=== PATIENT | female | born 1980 | race Caucasian/White ===

== ENCOUNTER → 2017-05-01 | Outpatient (CLI) | payer OTHER ==
--- NOTE | 2017-05-03 08:16 | MR ---
EXAMINATION TYPE: MR knee RT wo con DATE OF EXAM: 05/01/2017 COMPARISON: NONE HISTORY: right knee pain TECHNIQUE: Multiplanar, multisequence imaging of the right knee is performed without IV contrast. FINDINGS: MEDIAL MENISCUS: Within the peripheral aspect posterior horn medial meniscus findings are suspicious for a subtle tear.. LATERAL MENISCUS: Anterior and posterior horns are intact without tear. CRUCIATE LIGAMENTS: The anterior and posterior cruciate ligaments are intact and unremarkable. COLLATERAL LIGAMENTS: The medial collateral ligament and lateral collateral ligament complex are inta ct and unremarkable. EXTENSOR MECHANISM: Visualized quadriceps and patellar tendons are intact. There is increased edema w ithin the suprapatellar fat. EFFUSION: No significant suprapatellar joint effusion. POPLITEAL CYST: No popliteal/santo cyst. TRICOMPARTMENT SPACES: Joint spaces preserved.. Cartilage maintained. BONE MARROW SIGNAL: No focal abnormal marrow signal is appreciated. IMPRESSION: 1. No evidence of a ligamentous tear. 2. Within the posterior horn medial meniscus there is peripheral linear area of abnormal signal suspi cious for subtle tear. 3. Correlate for suprapatellar fat pad impingement.
== END ==
LOC: RADMRIMAIN 09:30
PROVIDERS: ATTEND Orthopaedic Surgery
DX: M25.561 Pain in right knee (principal); R93.7 Abnormal findings on diagnostic imaging of other parts of musculoskeletal system

== ENCOUNTER → 2019-01-07 | Outpatient (CLI) | payer OTHER ==
--- NOTE | 2019-01-08 17:07 | MR ---
EXAMINATION TYPE: MR lumbar spine wo con DATE OF EXAM: 01/07/2019 COMPARISON: NONE HISTORY: LBP, spondylosis with radiculopathy per order. Back pain into left leg for 1 month per patie nt. TECHNIQUE: Multiplanar, multisequence imaging of the lumbar spine is performed without IV contrast. FINDINGS: Sagittal images of the lumbar spine show vertebral body heights and alignment to appear sat isfactory. There is disc desiccation with mild disc space narrowing T12-L1 level. There is disc desic cation with mild to moderate disc space narrowing L5-S1 level with Modic type II endplate changes ant eriorly. The conus medullaris is normal in position and signal ending mid L1 level. Axial images show at T12-L1, L1-L2, L2-L3, and L3-L4 levels all to appear within normal limits. Axial images at the L4-L5 level shows mild facet degenerative changes bilaterally. Axial images at the L5-S1 level show left paracentral broad-based disc protrusion measuring approxima tely 15 mm transversely by 4 to 5 mm AP diameter axial image 6, this appears to encroach on the left anterolateral recess and the central left S1 nerve. Bilateral neural foramina are patent. No suspicious incidental retroperitoneal finding is identified. IMPRESSION: Disc herniation L5-S1 level encroaches on the central left S1 nerve likely accounting for patient's left-sided radiculopathy type symptoms.
== END | disposition home or self-care (01) ==
LOC: RADMRIMAIN 10:01
PROVIDERS: ATTEND Orthopaedic Surgery
DX: M51.17 Intervertebral disc disorders with radiculopathy, lumbosacral region (principal); M25.572 Pain in left ankle and joints of left foot
CPT/HCPCS: 72148

== ENCOUNTER → 2019-07-11 | Outpatient (CLI) | payer OTHER ==
--- NOTE | 2019-07-12 13:11 | MM ---
Reason for exam: screening (asymptomatic). Baseline mammogram. Physical Findings: Nurse did not find any significant physical abnormalities on exam. MG Screening Mammo w CAD Bilateral CC and MLO view(s) were taken. The breast tissue is heterogeneously dense. This may lower the sensitivity of mammography. There is a 1.1cm left superior breast posterior depth asymmetry, XCCL view to be performed. Bilateral upper outer quadrant posterior depth focal asymmetries. These results were verbally communicated with the patient and result sheet given to the patient on 07/11/19. ASSESSMENT: Incomplete: need additional imaging evaluation, BI-RAD 0 RECOMMENDATION: Special view mammogram of both breasts.
--- NOTE | 2019-07-12 13:14 | MM ---
Reason for exam: additional evaluation requested from abnormal screening. Physical Findings: Breast exam preformed at baseline screening. MG Work Up Mamm w CAD BILAT Bilateral spot compression CC, spot compression MLO, and ML view(s) were taken. The breast tissue is heterogeneously dense. This may lower the sensitivity of mammography. Right lateral asymmetry now has no clear correlate on ML or MLO. Right lateral ultrasound will be performed. Left upper outer quadrant focal asymmetry improves but visible, precautionary ultrasound will be performed. These results were verbally communicated with the patient and result sheet given to the patient on 07/11/19. ASSESSMENT: Incomplete: need additional imaging evaluation, BI-RAD 0 RECOMMENDATION: Ultrasound of both breasts. right lateral left upper outer quadrant
--- NOTE | 2019-07-12 13:15 | USB ---
Reason for exam: additional evaluation requested from abnormal screening. US Breast Workup Limited REZA Right limited breast ultrasound including focal area of concern, retroareolar and axilla demonstrates no cystic or solid lesion seen. Left limited breast ultrasound including focal area of concern, retroareolar and axilla demonstrates a 0.5 x 0.4 x 0.5cm oval, cystic lesion at 1 o'clock. These results were verbally communicated with the patient and result sheet given to the patient on 07/11/19. ASSESSMENT: Probably benign, BI-RAD 3 RECOMMENDATION: Follow-up diagnostic mammogram of both breasts in 6 months.
== END | disposition home or self-care (01) ==
LOC: RADMAMWWP 14:13
PROVIDERS: ATTEND Family Medicine
DX: Z12.31 Encounter for screening mammogram for malignant neoplasm of breast (principal); R92.8 Other abnormal and inconclusive findings on diagnostic imaging of breast
CPT/HCPCS: 77066; 77067

== ENCOUNTER → 2020-02-17 | Outpatient (CLI) | payer OTHER ==
--- NOTE | 2020-02-17 09:03 | MR ---
EXAMINATION TYPE: MR knee RT wo con DATE OF EXAM: 02/17/2020 8:15 AM COMPARISON: Previous study dated 05/01/2017. HISTORY: Medial Meniscus Tear TECHNIQUE: Multiplanar, multiecho imaging of the knee is performed without IV contrast. FINDINGS: There is only a small amount of joint fluid. There is no significant chondromalacia present. There is minimal myxoid change in the posterior horn of the medial meniscus. No communicating tear is identified. Both the anterior and posterior cruciate ligaments are intact. The medial and lateral collateral ligaments are intact. The iliotibial band insertion normally upon G erdy's tubercle. The popliteus muscle and tendon are normal. There is no significant swelling in the Hoffa fat space. Both patellar and quadriceps tendons are int act. No acute osseous lesion is seen. IMPRESSION: SMALL AMOUNT OF JOINT FLUID WITHOUT A DEFINITE LIGAMENTOUS OR MENISCAL TEAR.
== END | disposition home or self-care (01) ==
LOC: RADMRIMAIN 07:40
PROVIDERS: ATTEND Orthopaedic Surgery
DX: M25.461 Effusion, right knee (principal)

== ENCOUNTER → 2020-08-27 | Outpatient (CLI) | payer OTHER ==
--- NOTE | 2020-08-27 10:49 | MM ---
Reason for exam: additional evaluation requested from prior study. Last mammogram was performed 6 months ago. Physical Findings: Nurse did not find any significant physical abnormalities on exam. MG 3D Diag Mammo W/Cad REZA Bilateral CC and MLO view(s) were taken. Prior study comparison: February 23, 2020, bilateral MG 3d diag mammo w/cad REZA. July 11, 2019, bilateral MG work up mamm w CAD BILAT. The breast tissue is heterogeneously dense. This may lower the sensitivity of mammography. Persistent nodularity upper outer quadrant left breast. Ultrasound recommended. These results were verbally communicated with the patient and result sheet given to the patient on 08/27/20. ASSESSMENT: Incomplete: need additional imaging evaluation, BI-RAD 0 RECOMMENDATION: Ultrasound of the left breast.
--- NOTE | 2020-08-27 10:50 | USB ---
Reason for exam: additional evaluation requested from abnormal screening. US Breast Limited LT Left limited breast ultrasound including focal area of concern, retroareolar and axilla demonstrates a 5 x 4 x 5mm oval, cystic lesion at 2 o'clock and a 9 x 4 x 9mm lobular, cystic lesion with sepatation at 3 o'clock. These results were verbally communicated with the patient and result sheet given to the patient on 08/27/20. ASSESSMENT: Benign, BI-RAD 2 RECOMMENDATION: Routine screening mammogram of both breasts in 1 year.
== END | disposition home or self-care (01) ==
LOC: RADMAMWWP 09:25
PROVIDERS: ATTEND Family Medicine
DX: R92.8 Other abnormal and inconclusive findings on diagnostic imaging of breast (principal)
CPT/HCPCS: 77062; 77066

== ENCOUNTER → 2022-04-06 | Outpatient (CLI) | payer BC ==
--- NOTE | 2022-04-10 18:27 | MM ---
Reason for Exam: Screening (asymptomatic). Last mammogram was performed 1 year(s) and 7 month(s) ago. Patient History: Menarche at age 14. First Full-Term at age 19. Last menstrual period: 03/27/2022 Risk Values: Guillermina 5 year model risk: 0.6%. NCI Lifetime model risk: 8.0%. Prior Study Comparison: 07/11/2019 Bilateral Diagnostic Mammogram, [facility]. 02/23/2020 Bilateral Diagnostic Mammogram, [facility]. 08/27/2020 Bilateral Diagnostic Mammogram, [facility]. Tissue Density: The breast tissue is heterogeneously dense. This may lower the sensitivity of mammography. Findings: Analyzed By CAD. There is no suspicious group of microcalcifications or new suspicious mass in either breast. Overall Assessment: Negative, BI-RAD 1 Management: Screening Mammogram of both breasts in 1 year. A clinical breast exam by your physician is recommended on an annual basis and results should be correlated with mammographic findings. Electronically signed and approved by: Antonio Quezada DO
== END | disposition home or self-care (01) ==
LOC: RADMAMWWP 15:12
PROVIDERS: ATTEND Family Medicine
DX: Z12.31 Encounter for screening mammogram for malignant neoplasm of breast (principal)
CPT/HCPCS: 77063; 77067

== ENCOUNTER 2023-09-08 11:32 | Emergency (ER) | payer OTHER ==
--- NOTE | 2023-09-08 12:05 | ED ---
Female Urogenital HPI - General Chief complaint: Vaginal Bleeding Stated complaint: heavy bleeding Time Seen by Provider: 09/08/23 11:49 Source: patient, RN notes reviewed Mode of arrival: ambulatory Limitations: no limitations - History of Present Illness Initial comments: This is a 43 year old female who presents to the emergency department for vaginal bleeding. In May-June of last year she has having irregular vaginal bleeding, which she attributed to being perimenopausal. She went to her PCP and was started on oral contraceptives, specifically Sprintec, to try and regulate the bleeding. The OCPs were started in June. In July, she had heavy bleeding lasting for approximately 17 days with cramping. States that she just started bleeding again this morning. She has already gone through 10 tampons in an hour and states that the bleeding will not stop. She is not on any blood thinners. Denies any cramping at this time. She has no dizziness or lightheadedness, but states that she is just very anxious. Does not follow with [facility]. MD Complaint: vaginal bleeding - Related Data Allergies Allergy/AdvReac Type Severity Reaction Status Date / Time amoxicillin Allergy Swelling Verified 09/08/23 11:46 Penicillins Allergy Swelling Verified 09/08/23 11:46 Review of Systems ROS Statement: Those systems with pertinent positive or pertinent negative responses have been documented in the HPI. ROS Other: All systems not noted in ROS Statement are negative. Past Medical History Past Medical History: No Reported History History of Any Multi-Drug Resistant Organisms: None Reported Past Surgical History: Back Surgery, Tonsillectomy Past Psychological History: No Psychological Hx Reported Smoking Status: Never smoker Past Alcohol Use History: Occasional Past Drug Use History: None Reported General Exam Limitations: no limitations General appearance: alert, anxious Head exam: Present: atraumatic, normocephalic, normal inspection Respiratory exam: Present: normal lung sounds bilaterally. Absent: respiratory distress, wheezes, rales, rhonchi, stridor Cardiovascular Exam: Present: regular rate, normal rhythm, normal heart sounds. Absent: systolic murmur, diastolic murmur, rubs, gallop, clicks GI/Abdominal exam: Present: soft, normal bowel sounds. Absent: distended, tenderness, guarding, rebound, rigid Neurological exam: Present: alert, oriented X3, CN II-XII intact Psychiatric exam: Present: normal affect, normal mood Skin exam: Present: warm, dry, intact, normal color. Absent: rash Course Vital Signs 09/08/23 09/08/23 11:42 14:00 Temperature 97.6 F 98.9 F Pulse Rate 124 H 97 Respiratory 18 16 Rate Blood Pressure 189/115 166/87 O2 Sat by Pulse 98 97 Oximetry Medical Decision Making - Medical Decision Making This is a 43 year old female who presents to the emergency department for vaginal bleeding. Was pt. sent in by a medical professional or institution? @ -No Did you speak to anyone other than the patient for history? @ -No Did you review nursing and triage notes? @ -Yes, and I agree, it is accurate with regards to the patient's symptoms. Were old charts reviewed? @ -No Differential Diagnosis? @ -Differential Vaginal Bleeding: Spontaneous , threatened , molar , ectopic , i ncompetent cervix, placenta previa, uterine rupture, dysfunctional uterine bleeding, hemorrhage, uterine fibroids, malignancy, coagulopathy, PID, cervicitis, adenomyosis, vaginal trauma, this is not meant to be an all- inclusive list. EKG interpreted by me (3pts min.)? @ -Not obtained X-rays interpreted by me (1pt min.)? @ -Not obtained CT interpreted by me (1pt min.)? @ -Not obtained U/S interpreted by me (1pt. min.)? @ -Pelvic US obtained. My interpretation identifies a uterine fibroid. What testing was considered but not performed? (CT, X-rays, U/S, labs)? Why? @ -None What meds were considered but not given? Why? @ -None Did you discuss the management of the patient with other professionals? @ -No Did you reconcile home meds? @ -No Was smoking cessation discussed for >3mins.? @ -No Was critical care preformed (if so, how long)? @ -No Were there social determinants of health that impacted care today? How? (Homelessness, low income, unemployed, alcoholism, drug addiction, tr ansportation, low edu. Level, literacy, decrease access to med. care, fci, rehab)? @ -No Was there de-escalation of care discussed even if they declined? (Discuss DNR or withdrawal of care, Hospice)? @ -No What co-morbidities impacted this encounter? (DM, HTN, Smoking, COPD, CAD, Cancer, CVA, Hep., AIDS, mental health diagnosis, sleep apnea, morbid obesity)? @ -None Was patient admitted / discharged? @ -Discharged. Lab work obtained demonstrating a normal hemoglobin level of 13.2. She has mild leukocytosis. Lab work was otherwise unremarkable. Urinalysis negative for signs of infection. Pelvic US obtained demonstrating a probable large central fibroid with a submucosal component. No evidence of ovarian torsion or adnexal mass was identified. Her bleeding did improve to some extent while in the emergency department. Discussed that when starting OCP s, it can take a few months for bleeding to regulate, and this may be contributing to the bleeding. This may also be related to the uterine fibroid. We discussed NSAIDs such as ibuprofen can help with bleeding in cases of dysfunctional uterine bleeding. We did try to get her an appointment with OB /RN OR LPN, and they will review her records and contact the patient if they're able to get her an appointment. Patient otherwise discharged home in stable condition. Undiagnosed new problem with uncertain prognosis? @ -None Drug Therapy requiring intensive monitoring for toxicity (Heparin, Nitro, Insulin, Cardizem)? @ -None Were any procedures done? @ -None Diagnosis/symptom? @ -Dysfunctional uterine bleeding Acute, or Chronic, or Acute on Chronic? @ -Acute Uncomplicated (without systemic symptoms) or Complicated (systemic symptoms)? @ -Uncomplicated Side effects of treatment? @ -None Exacerbation, Progression, or Severe Exacerbation] @ -Not applicable Poses a threat to life or bodily function? @ -No Return precautions reviewed in depth, the patient is instructed to return to the emergency department with any new, worsening, or concerning symptoms. Patient verbalized understanding. This case was discussed in detail with the attending ED physician, Dr. Ward. Presentation, findings, and treatment plan discussed in detail as well. - Lab Data Result diagrams: 09/08/23 13:07 09/08/23 13:07 Lab Results 09/08/23 09/08/23 09/08/23 Range/Units 13:07 13:07 13:07 WBC 10.8 H (3.8-10.6) k/uL RBC 4.31 (3.80-5.40) m/uL Hgb 13.2 (11.4-16.0) gm/dL Hct 39.8 (34.0-46.0) % MCV 92.3 (80.0-100.0) fL MCH 30.5 (25.0-35.0) pg MCHC 33.1 (31.0-37.0) g/dL RDW 14.0 (11.5-15.5) % Plt Count 308 (150-450) k/uL MPV 7.9 Neutrophils % 81 % Lymphocytes % 14 % Monocytes % 3 % Eosinophils % 1 % Basophils % 1 % Neutrophils # 8.8 H (1.3-7.7) k/uL Lymphocytes # 1.5 (1.0-4.8) k/uL Monocytes # 0.4 (0-1.0) k/uL Eosinophils # 0.1 (0-0.7) k/uL Basophils # 0.1 (0-0.2) k/uL PT 9.8 L (10.0-12.5) sec INR 0.9 (<1.2) APTT 22.9 (22.0-30.0) sec Sodium (137-145) mmol/L Potassium (3.5-5.1) mmol/L Chloride (98-107) mmol/L Carbon Dioxide (22-30) mmol/L Anion Gap mmol/L BUN (7-17) mg/dL Creatinine (0.52-1.04) mg/dL Est GFR (CKD-EPI)AfAm (>60 ml/min/1.73 sqM) Est GFR (CKD-EPI)NonAf (>60 ml/min/1.73 sqM) Glucose (74-99) mg/dL Calcium (8.4-10.2) mg/dL Total Bilirubin (0.2-1.3) mg/dL AST (14-36) U/L ALT (4-34) U/L Alkaline Phosphatase (38-126) U/L Total Protein (6.3-8.2) g/dL Albumin (3.5-5.0) g/dL TSH (0.465-4.680) mIU/L HCG, Qual Urine Color Colorless Urine Appearance Clear (Clear) Urine pH 5.5 (5.0-8.0) Ur Specific [place] 1.015 (1.001-1.035) Urine Protein Trace H (Negative) Urine Glucose (UA) Negative (Negative) Urine Ketones Negative (Negative) Urine Blood Moderate H (Negative) Urine Nitrite Negative (Negative) Urine Bilirubin Negative (Negative) Urine Urobilinogen <2.0 (<2.0) mg/dL Ur Leukocyte Esterase Negative (Negative) Urine RBC 10 H (0-5) /hpf Urine WBC 3 (0-5) /hpf Ur Squamous Epith Cells <1 (0-4) /hpf Urine Bacteria Rare H (None) /hpf Urine Mucus Rare H (None) /hpf 09/08/23 Range/Units 13:07 WBC (3.8-10.6) k/uL RBC (3.80-5.40) m/uL Hgb (11.4-16.0) gm/dL Hct (34.0-46.0) % MCV (80.0-100.0) fL MCH (25.0-35.0) pg MCHC (31.0-37.0) g/dL RDW (11.5-15.5) % Plt Count (150-450) k/uL MPV Neutrophils % % Lymphocytes % % Monocytes % % Eosinophils % % Basophils % % Neutrophils # (1.3-7.7) k/uL Lymphocytes # (1.0-4.8) k/uL Monocytes # (0-1.0) k/uL Eosinophils # (0-0.7) k/uL Basophils # (0-0.2) k/uL PT (10.0-12.5) sec INR (<1.2) APTT (22.0-30.0) sec Sodium 139 (137-145) mmol/L Potassium 4.2 (3.5-5.1) mmol/L Chloride 109 H (98-107) mmol/L Carbon Dioxide 22 (22-30) mmol/L Anion Gap 8 mmol/L BUN 11 (7-17) mg/dL Creatinine 0.47 L (0.52-1.04) mg/dL Est GFR (CKD-EPI)AfAm >90 (>60 ml/min/1.73 sqM) Est GFR (CKD-EPI)NonAf >90 (>60 ml/min/1.73 sqM) Glucose 109 H (74-99) mg/dL Calcium 9.8 (8.4-10.2) mg/dL Total Bilirubin 0.3 (0.2-1.3) mg/dL AST 25 (14-36) U/L ALT 19 (4-34) U/L Alkaline Phosphatase 59 (38-126) U/L Total Protein 7.7 (6.3-8.2) g/dL Albumin 4.8 (3.5-5.0) g/dL TSH 2.690 (0.465-4.680) mIU/L HCG, Qual Not Detected Urine Color Urine Appearance (Clear) Urine pH (5.0-8.0) Ur Specific [place] (1.001-1.035) Urine Protein (Negative) Urine Glucose (UA) (Negative) Urine Ketones (Negative) Urine Blood (Negative) Urine Nitrite (Negative) Urine Bilirubin (Negative) Urine Urobilinogen (<2.0) mg/dL Ur Leukocyte Esterase (Negative) Urine RBC (0-5) /hpf Urine WBC (0-5) /hpf Ur Squamous Epith Cells (0-4) /hpf Urine Bacteria (None) /hpf Urine Mucus (None) /hpf - Radiology Data Radiology results: report reviewed, image reviewed Disposition Clinical Impression: Dysfunctional uterine bleeding Disposition: HOME SELF-CARE Instructions (If sedation given, give patient instructions): Abnormal (Dysfunctional) Uterine Bleeding (ED) Additional Instructions: Return to the emergency department with any new, worsening, or concerning symptoms. You can take ibuprofen 800 mg 3 times daily or Aleve to help with bleeding. The [facility] office will follow up with you to see if they can schedule you for a follow-up appointment. Follow up with your primary care provider in 1-2 days. Is patient prescribed a controlled substance at d/c from ED?: No Referrals: New Smith MD [Primary Care Provider] - 1-2 days Milagro Garrido DO [Doctor of Osteopathic Medicine] - 1-2 days (Office notified of referral and will contact you for appointment if accepted.) Time of Disposition: 14:49
[2023-09-08 13:19] LABS: Basophils # (A) 0.1 k/uL (0-0.2); Basophils % (A) 1 %; Eosinophils # (A) 0.1 k/uL (0-0.7); Eosinophils % (A) 1 %; HCT 39.8 % (34.0-46.0); HGB 13.2 gm/dL (11.4-16.0); Lymphocytes # (A) 1.5 k/uL (1.0-4.8); Lymphocytes % (A) 14 %; MCH 30.5 pg (25.0-35.0); MCHC 33.1 g/dL (31.0-37.0); MCV 92.3 fL (80.0-100.0); Mean Platelet Volume 7.9; Monocytes # (A) 0.4 k/uL (0-1.0); Monocytes % (A) 3 %; Neutrophils # (A) 8.8 k/uL (1.3-7.7); Neutrophils % (A) 81 %; Platelet Count 308 k/uL (150-450); RBC 4.31 m/uL (3.80-5.40); WBC 10.8 k/uL (3.8-10.6)
[2023-09-08 13:33] LABS: Appearance,Urine Clear (Clear); Bacteria,Urine Rare /hpf; Bilirubin,Urine Negative (Negative); Blood,Urine Moderate (Negative); Color,Urine Colorless; Glucose,Urine (UA) Negative (Negative); Ketones,Urine Negative (Negative); Leukocyte Esterase,Urine Negative (Negative); Mucus,Urine Rare /hpf; Nitrite,Urine Negative (Negative); PH, Urine 5.5 (5.0-8.0); Protein,Urine Trace (Negative); RBC,Urine 10 /hpf (0-5); Specific Gravity,Urine 1.015 (1.001-1.035); Squamous Epithelial Cell,Urine <1 /hpf (0-4); Urobilinogen,Urine <2.0 mg/dL (<2.0); WBC,Urine 3 /hpf (0-5)
[2023-09-08 13:37] LABS: HCG,Qualitative Serum Not Detected
[2023-09-08 13:40] LABS: ALT 19 U/L (4-34); AST 25 U/L (14-36); African American GFR (CKD) >90 (>60 ml/min/1.73 sqM); Albumin 4.8 g/dL (3.5-5.0); Alkaline Phosphatase 59 U/L (38-126); Anion Gap 8 mmol/L; Blood Urea Nitrogen 11 mg/dL (7-17); Calcium 9.8 mg/dL (8.4-10.2); Carbon Dioxide 22 mmol/L (22-30); Chloride 109 mmol/L (98-107); Glucose 109 mg/dL (74-99); Non-African American GFR(CKD) >90 (>60 ml/min/1.73 sqM); Potassium 4.2 mmol/L (3.5-5.1); Sodium 139 mmol/L (137-145); Total Bilirubin 0.3 mg/dL (0.2-1.3); Total Protein 7.7 g/dL (6.3-8.2)
[2023-09-08 13:48] LABS: INR 0.9 (<1.2); Partial Thromboplastin Time 22.9 sec (22.0-30.0); Prothrombin Time 9.8 sec (10.0-12.5)
--- NOTE | 2023-09-08 14:24 | US ---
EXAMINATION TYPE: US pelvic complete DATE OF EXAM: 09/08/2023 COMPARISON: NONE CLINICAL INDICATION: Female, 43 years old with history of Heavy vaginal bleeding; Irreg menses. [facility] [place] starting new control in June. Very heavy bleeding. TECHNIQUE: Transabdominal (TA). Transabdominal sonographic images of the pelvis were acquired. Date of LMP: Unknown, EXAM MEASUREMENTS: Uterus: 11.4 x 8.6 x 8.8 cm Endometrial Stripe: 0.8 cm Right Ovary: 2.8 x 1.8 x 1.5 cm Left Ovary: 2.6 x 1.9 x 1.4 cm 1. Uterus: Anteverted Midline hypoechoic heterogenous lesion = 5.9 x 5.5 x 5.2 that appears adjace nt to vs within edge of endometrium. This is likely a fibroid. 2. Endometrium: see above 3. Right Ovary: follicles seen, free fluid seen adjacent to ovary 4. Left Ovary: wnl 5. Bilateral Adnexa: Adjacent to right ovary 6. Posterior cul-de-sac: no free fluid IMPRESSION: 1. Probable large central fibroid which a submucosal component. 2. No evidence of ovarian torsion or adnexal mass.
[2023-09-08 15:19] VITALS: BP 166/87; PULSE 97; RESP 16; TEMP 98.9
== END 2023-09-08 15:00 | disposition home or self-care (01) ==
LOC: EC 11:32
DX: N93.8 Other specified abnormal uterine and vaginal bleeding (principal); Z88.0 Allergy status to penicillin
CPT/HCPCS: 36415; 76856; 80053; 81001; 84443; 84703; 85025; 85610; 85730; 99284

== ENCOUNTER 2023-11-30 21:20 | Emergency (ER) | payer OTHER ==
--- NOTE | 2023-11-30 22:43 | ED ---
Female Urogenital HPI - General Source: patient, RN notes reviewed, old records reviewed Mode of arrival: ambulatory Limitations: no limitations - History of Present Illness MD Complaint: dysuria, pelvic pain, other (Indwelling Miner catheter) -: days(s) Location: suprapubic Radiation: suprapubic Severity: mild Severity scale (1-10): 3 Quality: sharp Consistency: constant Improves with: none Worsens with: none Patient : No Associated Symptoms: abdominal pain - Related Data Sexually active: No <[place] - Last Filed: 11/30/23 22:41> <Soraya Ash - Last Filed: 12/01/23 02:11> - General Chief complaint: Urogenital Stated complaint: Post Op complications - History of Present Illness Initial comments: QN-43 female to the ER for evaluation of abdominal pain with recent significant surgery robotic hysterectomy with complication resulting in ureter reattachment and patient does have indwelling Miner catheter currently which they did not think was draining it does appear to be improving here in the emergency room and she does have some abdominal pain significant dysphagia which she believes is from intubation no shortness of breath, patient surgery was not at this hospital, [facility] ([place]) 43-year-old female presenting with chief complaint of Miner catheter malfunction. Patient had recent robotic hysterectomy with complication resulting in urinary reattachment. Surgery was done at [facility]. Patient has an indwelling Miner catheter, earlier the patient did not think that the catheter was draining properly and believes that it was leaking. Since being in the ER they report that the flow has increased and she does not believe that the catheter is leaking anymore. She does have some postoperative discomfort, no significant pain. She does have sore throat which she presumes is from the intubation. No fever, chest pain, difficulty breathing, nausea, vomiting. (Soraay Ash) - Related Data Allergies Allergy/AdvReac Type Severity Reaction Status Date / Time amoxicillin Allergy Swelling Verified 11/30/23 21:29 Penicillins Allergy Swelling Verified 11/30/23 21:29 Review of Systems ROS Other: All systems not noted in ROS Statement are negative. <[place] Johnston - Last Filed: 11/30/23 22:41> ROS Other: All systems not noted in ROS Statement are negative. <Soraya Ash - Last Filed: 12/01/23 02:11> ROS Statement: Those systems with pertinent positive or pertinent negative responses have been documented in the HPI. Past Medical History Past Medical History: No Reported History History of Any Multi-Drug Resistant Organisms: None Reported Past Surgical History: Back Surgery, Hysterectomy, Tonsillectomy Past Psychological History: No Psychological Hx Reported Smoking Status: Never smoker Past Alcohol Use History: Occasional Past Drug Use History: None Reported <VickieSergioshobha Akbar - Last Filed: 11/30/23 22:41> General Exam Limitations: no limitations General appearance: alert, in no apparent distress Head exam: Present: atraumatic, normocephalic, normal inspection Eye exam: Present: normal appearance, PERRL, EOMI. Absent: scleral icterus, co njunctival injection, periorbital swelling ENT exam: Present: normal exam, mucous membranes moist Neck exam: Present: normal inspection. Absent: tenderness, meningismus, lymphadenopathy Respiratory exam: Present: normal lung sounds bilaterally. Absent: respiratory distress, wheezes, rales, rhonchi, stridor Cardiovascular Exam: Present: regular rate, normal rhythm, normal heart sounds. Absent: systolic murmur, diastolic murmur, rubs, gallop, clicks GI/Abdominal exam: Present: soft, normal bowel sounds. Absent: distended, tenderness, guarding, rebound, rigid Extremities exam: Present: normal inspection, full ROM, normal capillary refill. Absent: tenderness, pedal edema, joint swelling, calf tenderness Back exam: Present: normal inspection Neurological exam: Present: alert, oriented X3, CN II-XII intact Psychiatric exam: Present: normal affect, normal mood Skin exam: Present: warm, dry, intact, normal color. Absent: rash <MakenziemanjeetSergio gainese Raffy - Last Filed: 11/30/23 22:41> Limitations: no limitations General appearance: alert, in no apparent distress Head exam: Present: atraumatic, normocephalic Eye exam: Present: normal appearance, EOMI Neck exam: Present: normal inspection. Absent: meningismus Respiratory exam: Present: normal lung sounds bilaterally. Absent: respiratory distress, wheezes, rales, rhonchi, stridor Cardiovascular Exam: Present: regular rate, normal rhythm, normal heart sounds. Absent: systolic murmur, diastolic murmur, rubs, gallop, clicks GI/Abdominal exam: Present: soft. Absent: distended, tenderness, guarding, rebound, rigid Neurological exam: Present: alert, oriented X3 Psychiatric exam: Present: normal affect, normal mood Skin exam: Present: normal color <Soraya Ash - Last Filed: 12/01/23 02:11> Course <New Johnston - Last Filed: 11/30/23 22:41> Vital Signs 11/30/23 12/01/23 21:28 00:40 Temperature 97.7 F 98.4 F Pulse Rate 82 Respiratory 18 Rate Blood Pressure 183/79 O2 Sat by Pulse 95 Oximetry - Reevaluation(s) Reevaluation #1: 11/30/23 22:42 QN completed by myself Dr Johnston ([place]) Medical Decision Making - Lab Data Result diagrams: 12/01/23 00:08 12/01/23 00:08 <Soraya Ash - Last Filed: 12/01/23 02:11> - Medical Decision Making Was pt. sent in by a medical professional or institution (, PA, SEED SPECIALIST, urgent care, hospital, or long term...) When possible be specific @ -No Did you speak to anyone other than the patient for history (EMS, parent, family, police, friend...)? What history was obtained from this source @ -No Did you review nursing and triage notes (agree or disagree)? Why? @ -I reviewed and agree with nursing and triage notes Were old charts reviewed (outside hosp., previous admission, EMS record, old EKG, old radiological studies, urgent care reports/EKG's, long term records)? Report findings @ -No old charts were reviewed Differential Diagnosis (chest pain, altered mental status, abdominal pain women, abdominal pain men, vaginal bleeding, weakness, fever, dyspnea, syncope, headache, dizziness, GI bleed, back pain, seizure, CVA, palpatations, mental health, musculoskeletal)? @ -Differential includes dislodging of Miner catheter, broken Miner catheter, urethral obstruction, this is not an all-inclusive list EKG interpreted by me (3pts min.). @ -As above X-rays interpreted by me (1pt min.). @ -None done CT interpreted by me (1pt min.). @ -None done U/S interpreted by me (1pt. min.). @ -None done What testing was considered but not performed or refused? (CT, X-rays, U/S, labs)? Why? @ -None What meds were considered but not given or refused? Why? @ -None Did you discuss the management of the patient with other professionals (professionals i.e. , PA, SEED SPECIALIST, lab, RT, psych nurse, social media assistant, internet database specialist, teacher, national insurance officer, supervisor case loading)? Give summary @ -No Was smoking cessation discussed for >3mins.? @ -No Was critical care preformed (if so, how long)? @ -No Were there social determinants of health that impacted care today? How? (Homelessness, low income, unemployed, alcoholism, drug addiction, transportation, low edu. Level, literacy, decrease access to med. care, fci, rehab)? @ -No Was there de-escalation of care discussed even if they declined (Discuss DNR or withdrawal of care, Hospice)? DNR status @ -No What co-morbidities impacted this encounter? (DM, HTN, Smoking, COPD, CAD, Can cer, CVA, ARF, Chemo, Hep., AIDS, mental health diagnosis, sleep apnea, morbid obesity)? @ -None Was patient admitted / discharged? Hospital course, mention meds given and route, prescriptions, significant lab abnormalities, going to OR and other pertinent info. @ -43-year-old female presenting with chief complaint of Miner catheter not draining properly. Miner catheter is present due to the patient's recent hysterectomy that was complicated by urinary reattachment. Workup was initiated by triage. Patient is later placed in a room and evaluated by myself. She is having no significant abdominal pain. Patient and family report that the catheter is now draining quite well. She does not believe that is leaking at this time. Urine shows large blood which is to be expected given her recent procedure. She will be discharged home and is instructed to follow-up with her surgeon. Follow-up with PCP. Report back to ER with any new or worsening symptoms. Discussed return parameters and answered all questions. Patient conveyed verbal understanding and agreed to the plan. I discussed this case in detail with my attending Dr. Johnston Undiagnosed new problem with uncertain prognosis? @ -No Drug Therapy requiring intensive monitoring for toxicity (Heparin, Nitro, Insulin, Cardizem)? @ -No Were any procedures done? @ -No Diagnosis/symptom? @ -Miner catheter in place Acute, or Chronic, or Acute on Chronic? @ -Acute Uncomplicated (without systemic symptoms) or Complicated (systemic symptoms)? @ -Uncomplicated Side effects of treatment? @ -No Exacerbation, Progression, or Severe Exacerbation? @ -No Poses a threat to life or bodily function? How? (Chest pain, [place], [place], pneumonia, PE, COPD, DKA, ARF, appy, cholecystitis, CVA, Diverticulitis, Homicidal, Suicidal, threat to staff... and all critical care pts) @ -Low likelihood (Soraya Ash) - Lab Data Lab Results 12/01/23 12/01/23 12/01/23 Range/Units 00:08 00:08 00:08 WBC 10.9 H (3.8-10.6) k/uL RBC 3.79 L (3.80-5.40) m/uL Hgb 11.8 (11.4-16.0) gm/dL Hct 35.6 (34.0-46.0) % MCV 93.9 (80.0-100.0) fL MCH 31.2 (25.0-35.0) pg MCHC 33.2 (31.0-37.0) g/dL RDW 12.8 (11.5-15.5) % Plt Count 264 (150-450) k/uL MPV 8.9 Neutrophils % 80 % Lymphocytes % 13 % Monocytes % 5 % Eosinophils % 0 % Basophils % 0 % Neutrophils # 8.7 H (1.3-7.7) k/uL Lymphocytes # 1.4 (1.0-4.8) k/uL Monocytes # 0.6 (0-1.0) k/uL Eosinophils # 0.0 (0-0.7) k/uL Basophils # 0.1 (0-0.2) k/uL Sodium 137 (137-145) mmol/L Potassium 5.1 (3.5-5.1) mmol/L Chloride 108 H (98-107) mmol/L Carbon Dioxide 22 (22-30) mmol/L Anion Gap 7 mmol/L BUN 8 (7-17) mg/dL Creatinine 0.41 L (0.52-1.04) mg/dL Est GFR (CKD-EPI)AfAm >90 (>60 ml/min/1.73 sqM) Est GFR (CKD-EPI)NonAf >90 (>60 ml/min/1.73 sqM) Glucose 105 H (74-99) mg/dL Plasma Lactic Acid Osmar (0.7-2.0) mmol/L Calcium 8.7 (8.4-10.2) mg/dL Total Bilirubin 0.8 (0.2-1.3) mg/dL AST 39 H (14-36) U/L ALT 22 (4-34) U/L Alkaline Phosphatase 29 L (38-126) U/L Total Protein 6.7 (6.3-8.2) g/dL Albumin 3.9 (3.5-5.0) g/dL Amylase 56 (30-110) U/L Lipase 99 (23-300) U/L Urine Color Light Red Urine Appearance Cloudy H (Clear) Urine pH 6.5 (5.0-8.0) Ur Specific [place] 1.017 (1.001-1.035) Urine Protein 1+ H (Negative) Urine Glucose (UA) Negative (Negative) Urine Ketones 1+ H (Negative) Urine Blood Large H (Negative) Urine Nitrite Negative (Negative) Urine Bilirubin Negative (Negative) Urine Urobilinogen <2.0 (<2.0) mg/dL Ur Leukocyte Esterase Large H (Negative) Urine RBC >182 H (0-5) /hpf Urine WBC 19 H (0-5) /hpf Ur Squamous Epith Cells 1 (0-4) /hpf Urine Bacteria Rare H (None) /hpf Urine Mucus Rare H (None) /hpf 12/01/23 Range/Units 00:08 WBC (3.8-10.6) k/uL RBC (3.80-5.40) m/uL Hgb (11.4-16.0) gm/dL Hct (34.0-46.0) % MCV (80.0-100.0) fL MCH (25.0-35.0) pg MCHC (31.0-37.0) g/dL RDW (11.5-15.5) % Plt Count (150-450) k/uL MPV Neutrophils % % Lymphocytes % % Monocytes % % Eosinophils % % Basophils % % Neutrophils # (1.3-7.7) k/uL Lymphocytes # (1.0-4.8) k/uL Monocytes # (0-1.0) k/uL Eosinophils # (0-0.7) k/uL Basophils # (0-0.2) k/uL Sodium (137-145) mmol/L Potassium (3.5-5.1) mmol/L Chloride (98-107) mmol/L Carbon Dioxide (22-30) mmol/L Anion Gap mmol/L BUN (7-17) mg/dL Creatinine (0.52-1.04) mg/dL Est GFR (CKD-EPI)AfAm (>60 ml/min/1.73 sqM) Est GFR (CKD-EPI)NonAf (>60 ml/min/1.73 sqM) Glucose (74-99) mg/dL Plasma Lactic Acid Osmar 0.8 (0.7-2.0) mmol/L Calcium (8.4-10.2) mg/dL Total Bilirubin (0.2-1.3) mg/dL AST (14-36) U/L ALT (4-34) U/L Alkaline Phosphatase (38-126) U/L Total Protein (6.3-8.2) g/dL Albumin (3.5-5.0) g/dL Amylase (30-110) U/L Lipase (23-300) U/L Urine Color Urine Appearance (Clear) Urine pH (5.0-8.0) Ur Specific [place] (1.001-1.035) Urine Protein (Negative) Urine Glucose (UA) (Negative) Urine Ketones (Negative) Urine Blood (Negative) Urine Nitrite (Negative) Urine Bilirubin (Negative) Urine Urobilinogen (<2.0) mg/dL Ur Leukocyte Esterase (Negative) Urine RBC (0-5) /hpf Urine WBC (0-5) /hpf Ur Squamous Epith Cells (0-4) /hpf Urine Bacteria (None) /hpf Urine Mucus (None) /hpf Disposition <[place] - Last Filed: 11/30/23 22:41> Is patient prescribed a controlled substance at d/c from ED?: No Time of Disposition: 01:49 <Soraya Ash - Last Filed: 12/01/23 02:11> Clinical Impression: Miner catheter in place Disposition: HOME SELF-CARE Condition: Good Additional Instructions: Follow-up with your PCP and surgeon. Report back to ER with any new or worsenin g symptoms. Referrals: New Smith MD [Primary Care Provider] - 1-2 days
[2023-12-01] MEDS: SODIUM CHLORIDE 0.9% 1,000 ML IV STA (00:06)
[2023-12-01 00:35] LABS: ALT 22 U/L (4-34); AST 39 U/L (14-36); African American GFR (CKD) >90 (>60 ml/min/1.73 sqM); Albumin 3.9 g/dL (3.5-5.0); Alkaline Phosphatase 29 U/L (38-126); Amylase 56 U/L (30-110); Anion Gap 7 mmol/L; Blood Urea Nitrogen 8 mg/dL (7-17); Calcium 8.7 mg/dL (8.4-10.2); Carbon Dioxide 22 mmol/L (22-30); Chloride 108 mmol/L (98-107); Glucose 105 mg/dL (74-99); Lipase 99 U/L (23-300); Non-African American GFR(CKD) >90 (>60 ml/min/1.73 sqM); Sodium 137 mmol/L (137-145); Total Bilirubin 0.8 mg/dL (0.2-1.3); Total Protein 6.7 g/dL (6.3-8.2)
[2023-12-01 00:44] LABS: Potassium 5.1 mmol/L (3.5-5.1)
[2023-12-01 00:55] LABS: Appearance,Urine Cloudy (Clear); Bacteria,Urine Rare /hpf; Bilirubin,Urine Negative (Negative); Blood,Urine Large (Negative); Color,Urine Light Red; Glucose,Urine (UA) Negative (Negative); Ketones,Urine 1+ (Negative); Leukocyte Esterase,Urine Large (Negative); Mucus,Urine Rare /hpf; Nitrite,Urine Negative (Negative); PH, Urine 6.5 (5.0-8.0); Protein,Urine 1+ (Negative); RBC,Urine >182 /hpf (0-5); Specific Gravity,Urine 1.017 (1.001-1.035); Squamous Epithelial Cell,Urine 1 /hpf (0-4); Urobilinogen,Urine <2.0 mg/dL (<2.0); WBC,Urine 19 /hpf (0-5)
[2023-12-01 01:18] LABS: Basophils # (A) 0.1 k/uL (0-0.2); Basophils % (A) 0 %; Eosinophils % (A) 0 %; HCT 35.6 % (34.0-46.0); HGB 11.8 gm/dL (11.4-16.0); Lymphocytes # (A) 1.4 k/uL (1.0-4.8); Lymphocytes % (A) 13 %; MCH 31.2 pg (25.0-35.0); MCHC 33.2 g/dL (31.0-37.0); MCV 93.9 fL (80.0-100.0); Mean Platelet Volume 8.9; Monocytes # (A) 0.6 k/uL (0-1.0); Monocytes % (A) 5 %; Neutrophils # (A) 8.7 k/uL (1.3-7.7); Neutrophils % (A) 80 %; Platelet Count 264 k/uL (150-450); RBC 3.79 m/uL (3.80-5.40); RDW 12.8 % (11.5-15.5); WBC 10.9 k/uL (3.8-10.6)
[2023-12-01 02:32] VITALS: BP 157/97; PULSE 72; RESP 20; TEMP 98.3
== END 2023-12-01 02:10 | disposition home or self-care (01) ==
LOC: EC 21:20
DX: T83.9XXA Unspecified complication of genitourinary prosthetic device, implant and graft, initial encounter (principal); Z88.0 Allergy status to penicillin
CPT/HCPCS: 36415; 51702; 80053; 81001; 82150; 83605; 83690; 85025; 96360; 99283

== ENCOUNTER → 2024-01-26 | Outpatient (CLI) | payer OTHER ==
--- NOTE | 2024-01-26 12:22 | US ---
EXAMINATION TYPE: US kidneys/renal and bladder DATE OF EXAM: 01/26/2024 COMPARISON: NONE CLINICAL INDICATION: Female, 43 years old with history of S37.19XD INJURY TO URETERAL; Left ureter wa s injured during hysterectomy 8 weeks ago, everything has healed now, no current issues EXAM MEASUREMENTS: Right Kidney: 9.4 x 4.3 x 4.3 cm Left Kidney: 10.5 x 3.9 x 5.1 cm Right Kidney: No hydronephrosis or masses seen Left Kidney: No hydronephrosis or masses seen Bladder: wnl There is no evidence for hydronephrosis at this point in time. No nephrolithiasis is seen. No jimenez s are identified. Cortical medullary differentiation is maintained. The urinary bladder is underdiste nded but anechoic. No filling defect identified. IMPRESSION: 1. No hydronephrosis or nephrolithiasis. 2. Unremarkable ultrasound appearance of bladder.
[2024-01-26 19:38] LABS: BUN/Creat Ratio 19.33 Ratio (12.00-20.00); Blood Urea Nitrogen 11.6 mg/dL (9.0-27.0); Chloride 103 mmol/L (96-109); Glucose 93 mg/dL (70-110); Potassium 4.4 mmol/L (3.5-5.5); Sodium 140 mmol/L (135-145)
[2024-01-26 19:39] LABS: Calcium 10.5 mg/dL (8.7-10.3); Carbon Dioxide 24.7 mmol/L (21.6-31.8)
== END | disposition home or self-care (01) ==
LOC: RADUSWWP 11:49
PROVIDERS: ATTEND Urology
DX: S37 Injury of urinary and pelvic organs (principal); Z90.710 Acquired absence of both cervix and uterus; X58.XXXD Exposure to other specified factors, subsequent encounter
CPT/HCPCS: 76770; 80048

== ENCOUNTER 2024-04-20 07:10 | Emergency (ER) | payer OTHER ==
[2024-04-20 07:27] VITALS: BP 172/94; PULSE 101; RESP 18; TEMP 97.9
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
== END 2024-04-20 09:12 | disposition home or self-care (01) ==
LOC: EC 07:10
CPT/HCPCS: 99284

== ENCOUNTER → 2024-06-19 | Outpatient (CLI) | payer OTHER ==
--- NOTE | 2024-06-19 17:58 | MM ---
Reason for Exam: Screening (asymptomatic). Last mammogram was performed 1 year(s) and 2 month(s) ago. Patient History: Menarche at age 14. First Full-Term at age 19. Hysterectomy at age 44. Hormonal Contraceptives for 6 months starting at age 44. Risk Values: Guillermina 5 year model risk: 0.7%. NCI Lifetime model risk: 7.8%. Prior Study Comparison: 08/27/2020 Bilateral Diagnostic Mammogram, [facility]. 04/06/2022 Bilateral MG 3D screening mammo w/cad, [facility]. 04/19/2023 Bilateral MG 3D screening mammo w/cad, [facility]. Tissue Density: The breasts are heterogeneously dense, which may obscure small masses. Findings: Analyzed By CAD. Asymmetric density central outer right CC view anterior depth appears more defined. This may represent superimposition shadow but further evaluation is recommended. Possible new nodularity upper quadrant right breast middle depth for which further evaluation is recommended. Otherwise, no significant change. Overall Assessment: Incomplete: need additional imaging evaluation, BI-RAD 0 Management: Special View Mammogram of the right breast. Diagnostic Breast Ultrasound of the right breast. [facility] will attempt to contact patient to return for supplemental views and ultrasound if indicated. [facility], , 06/19/2024 5:51 PM. Electronically signed and approved by: Tamir Charles M.D. Radiologist
== END | disposition home or self-care (01) ==
LOC: RADMAMWWP 08:24
PROVIDERS: ATTEND Family Medicine
DX: Z12.31 Encounter for screening mammogram for malignant neoplasm of breast (principal); R92.333 Mammographic heterogeneous density, bilateral breasts
CPT/HCPCS: 77063; 77067

== ENCOUNTER → 2024-06-27 | Outpatient (CLI) | payer OTHER ==
--- NOTE | 2024-06-27 10:35 | MM ---
Reason for Exam: Additional evaluation requested from abnormal screening. Last screening mammogram was performed less than 1 month ago. Patient History: Menarche at age 14. First Full-Term at age 19. Hysterectomy at age 44. Hormonal Contraceptives for 6 months starting at age 44. Risk Values: Guillermina 5 year model risk: 0.7%. NCI Lifetime model risk: 7.8%. Prior Study Comparison: 07/11/2019 Bilateral Screening Mammogram, [facility]. 07/11/2019 Bilateral Diagnostic Mammogram, [facility]. 02/23/2020 Bilateral Diagnostic Mammogram, [facility]. 04/06/2022 Bilateral MG 3D screening mammo w/cad, [facility]. 04/19/2023 Bilateral MG 3D screening mammo w/cad, [facility]. 06/19/2024 Bilateral MG 3D screening mammo w/cad, [facility]. Tissue Density: Right: The breasts are heterogeneously dense, which may obscure small masses. Findings: Analyzed By CAD. A 9 mm oval circumscribed nodule medial right breast seen persists on the spot 3-D CC view. However, still not clearly identified on the lateral view. Given the isodense appearance, this may represent a benign etiology. The questioned asymmetric density lateral anterior depth becomes less defined. The questioned superior segment of density appears to disperse suggesting superimposition shadow. Overall Assessment: Incomplete: need additional imaging evaluation, BI-RAD 0 Management: Diagnostic Breast Ultrasound of the right breast. [facility], , 06/27/2024 10:32 AM. Electronically signed and approved by: Tamir Charles M.D. Radiologist
--- NOTE | 2024-06-27 11:14 | USB ---
Reason for Exam: Additional evaluation requested from abnormal screening. Patient History: Menarche at age 14. First Full-Term at age 19. Hysterectomy at age 44. Hormonal Contraceptives for 6 months starting at age 44. Risk Values: Guillermina 5 year model risk: 0.7%. NCI Lifetime model risk: 7.8%. Technique: Method: Targeted. Prior Study Comparison: 04/06/2022 Bilateral MG 3D screening mammo w/cad, [facility]. 04/19/2023 Bilateral MG 3D screening mammo w/cad, [facility]. 06/19/2024 Bilateral MG 3D screening mammo w/cad, [facility]. Findings: The medial section of the breast of the right breast, the axilla of the right breast and the retroareolar of the right breast were scanned. Targeted ultrasound medial right breast 12:00 to 3:00 including scanning of the subareolar region and axilla. At the 3:00 position, 4 cm from the nipple, there is a 9 x 8 x 5 mm complex cyst versus cyst cluster. Possible trace internal vascularity. Mammographic correlate. Six-month follow-up recommended. Overall Assessment: Probably benign, BI-RAD 3 Management: Diagnostic Mammogram of the right breast in 6 months. Diagnostic Breast Ultrasound of the right breast in 6 months. A clinical breast exam by your physician is recommended on an annual basis and results should be correlated with mammographic findings. This exam should not preclude additional follow-up of suspicious palpable abnormalities. Results were given to the patient verbally at the time of exam. [facility], , 06/27/2024 11:11 AM. Electronically signed and approved by: Tamir Charles M.D. Radiologist
== END | disposition home or self-care (01) ==
LOC: RADMAMWWP 10:00
PROVIDERS: ATTEND Family Medicine
DX: R92.8 Other abnormal and inconclusive findings on diagnostic imaging of breast (principal); R92.331 Mammographic heterogeneous density, right breast
CPT/HCPCS: 77061; 77065